=== PATIENT | female | born 1990 | race Hispanic/Latino ===

== ENCOUNTER 2020-10-14 10:03 | Outpatient (RCR) | payer OTHER, SELFPAY ==
--- NOTE | ~2020-10-14 | US_ITS ---
EXAMINATION: US OB follow up w BPP EXAM DATE: 10/14/2020 11:34 INDICATION: BPP, JORY, EFW for well being WELL BEING . 3rd trimester. TECHNIQUE: Pelvic obstetrical transabdominal sonogram was performed by a technologist. There are mu ltiple grayscale and Doppler images available for interpretation. No prior study. FINDINGS: There is a single fetus identified in vertex presentation with a heart rate of 135 beats pe r minute. The placenta is located in the fundal position. There is no sonographic evidence of retrop lacental hemorrhage identified. The amniotic fluid index is 15.0 centimeters, which is normal. BIOPHYSICAL PROFILE (performed by the technologist) breathing (30 sec sustained breathing in 30 minutes): 2 out of 2 movement (3 gross body movements in 30 minutes): 0 out of 2 tone (one episode of iaohycu-mfabytpqj-rrypovy limb movement): 2 out of 2 Amniotic fluid pocket (2 cm): 2 out of 2 Total score: 6 out of 8. BIOMETRIC DATA: Biparietal diameter (BPD): 9.6cm --------------> 39 weeks 1 day. Head circumference (HC): 85.2 cm ---------------> 41 weeks 0 days. Abdominal circumference (AC): 42.3 cm ---------> out of range. Femur length (FL): 7.6 cm ------------------------> 38 weeks 5 days. These measurements are discordant, low head circumference/abdominal circumference ratio. HC/AC ratio is 0.83 (The 5th -- 95th percentile range is 0.89-1.04. Estimated weight is 03/15/2002 g +/- 765 g. This is the greater than 97th percentile when the rrently reported clinical gestation age 39 weeks 5 days, clinical estimated date of delivery (KATHERINE-OPE ) 10/16 is used. estimated gestational age based on measurements from this exam is 39 weeks 4 da ys, with an estimated date of delivery (KATHERINE-AUA) 10/17. IMPRESSION: 1. Single fetus with heart rate of 135 bpm. 2. Abnormal BPS 04/22. 3. Normal JORY 15 cm. 4. Large abdominal circumference, likely contributing to the low HC/AC ratio. Reviewed, dictated and finalized at location A. RAL SERVICE MANAGER IMPRESSION: 1. Single fetus with heart rate of 135 bpm. 2. Abnormal BPS /8. 3. Normal JORY 15 cm. 4. Large abdominal circumference, likely contributing to the low HC/AC ratio.
[2020-10-14 13:13] VITALS: BP 116/69; PULSE 78
== END 2020-10-30 09:58 | disposition home or self-care (01) ==
LOC: ANHOBOP 10:03
PROVIDERS: Visit Provider Obstetrics & Gynecology
DX: O26.893 Other specified pregnancy related conditions, third trimester (principal); Z3A.39 39 weeks gestation of pregnancy
CPT/HCPCS: 59025; 76816; 76819

== ENCOUNTER → 2020-10-14 13:09 | Outpatient (CLI) | payer OTHER, SELFPAY ==
--- NOTE | ~2020-10-14 | US_ITS ---
EXAMINATION: US OB follow up DATE: 10/14/2020 13:40 INDICATION: Estimated weight TECHNIQUE: Real-time transabdominal obstetric ultrasound. FINDINGS: Ultrasound dated 10/14/2020 There is a single living fetus in vertex presentation. The placenta is fundal without placenta previ a. cardiac activity and movement is noted with a heart rate of 146 beats per minute. T he amniotic fluid volume is normal. JORY measures 14.4 cm. The following biometric data were obtained: BPD: 96mm corresponds to gestational age 39 weeks 1 days. Head circumference: 348mm corresponds to gestational age 40 weeks 2 days. Abdominal circumference: 416mm. Femur length: 74mm corresponds to gestational age 37 weeks 5 days. Estimated weight: 4867grams +/- 7:30grams.] IMPRESSION: 1. Single living intrauterine in vertex presentation with an estimated gestational age of 39 weeks 0 days by current ultrasound. 2. Estimated weight is 4867 g +/- 730 g which is greater than 97th percentile. Reviewed, dictated and finalized at location B. CTOR OPERATIONS IMPRESSION: 1. Single living intrauterine in vertex presentation with an estimat ed gestational age of 39 weeks 0 days by current ultrasound. 2. Estimated weight is 4867 g +/- 730 g which is greater than 97th percen letha.
== END ==
PROVIDERS: Visit Provider Obstetrics & Gynecology
DX: Z03.74 Encounter for suspected problem with fetal growth ruled out (principal); Z3A.39 39 weeks gestation of pregnancy
CPT/HCPCS: 76816

== ENCOUNTER 2020-10-15 07:02 | Inpatient (IN) | payer OTHER, SELFPAY ==
--- NOTE | 2020-10-14 20:46 | PM.IMHP ---
H&P: HPI History of Present Illness Date/Time: 10/14/20 20:46 Chief complaint: Pre-Admit Narrative: Angle Block is a 30 year old female 30 yo F presents for JONNIE at 40w1d. c/b late entry into care, +MTHFR. Her first visit was at 31 weeks and had only one other visit in [place]. Also c/b +group b strep, +trich, +pili, urine culture with +e. coli. Patient endorses movement. Continues to report pain and pressure since last visit, has not worsened. Denies contractions, bleeding, or leakage of fluids.She was offered induction of labor for vaginal delivery with risk of shoulder dystocia and exterminator helper termite complications including but not limited to Erb's palsy, brachial plexus injury with penitentiary complications, clavicular fx with neurologic or pulmonary complications, and even possible need for emergency due to Zavinelli maneuver (replacing head with penitentiary complications). Patient via her re dye hand desires to have a primary . I will schedule for in the morning at [facility] on 10/15/2020 at 0900. Paper work with risks and procedure in telugu given to patient. She understands, agrees, and accepts to proceed with the plan. Review of Systems Review of Systems: All systems reviewed & are unremarkable except as noted in HPI and below Constitutional: Constitutional: Reports no additional constitutional complaints Eyes: Eyes: Reports no additional eye complaints ENT: Reports system reviewed and no additional complaints, except as documented Cardiovascular: Cardiovascular: Reports no additional cardiovascular complaints Respiratory: Respiratory: Reports no additional respiratory complaints Gastrointestinal: Gastrointestinal: Reports no additional gastrointestinal complaints Genitourinary: Genitourinary: Reports no additional female genitourinary complaints Musculoskeletal: Musculoskeletal: Reports no additional musculoskeletal complaints Integumentary/Breasts: Skin/Breast: Reports system reviewed and no additional complaints, except as docu Neurologic: Reports system reviewed and no additional complaints, except as documented Psychiatric: Psychiatric: Reports no additional psychiatric complaints Endocrine: Endocrine: Reports no additional endocrine complaints Hematologic/Lymphatic: Hematologic/Lymphatic: Reports no additional hematologic/lymphatic complaints Allergic/Immunologic: Allergic/Immunologic: Reports no additional allergic/immunologic complaints PMFSH Past Medical History Medical History (Updated 10/14/20 @ 21:08 by Ihsan Araya MD) E. coli UTI macrosomia during in third trimester EFW>5,000g GBS (group B Streptococcus carrier), +RV culture, currently History of candidal vulvovaginitis History of delivery History of trichomonal vaginitis Homozygous MTHFR mutation [id number] Late care affecting in third trimester Vaginal delivery 11-12-2013, 29 wks 1. F, 3lbs 12oz, Vaginal Vaginal delivery 07-30-2017, 40 wks 1. M, 10lbs, Vaginal Vaginal delivery 10-27-2019, 40 wks 1. F, 10lbs 8oz, Vaginal Family History Family History Grandparent Diabetes mellitus Father Diabetes mellitus Social History Social History (Updated 10/14/20 @ 21:10 by Ihsan Araya MD) Smoking status: Never smoker Second hand tobacco smoke exposure: No Alcohol intake: never Substance use: never Substance use type: does not use Living arrangements: with family Occupation/Education: unemployed Gender identity (if verbalized by the patient): Female Sexual Orientation (if Verbalized by the Patient): Straight or Heterosexual Spiritual care concerns: No Agree to blood products: Yes Meds Home Medications and Allergies Home Medications Medication Instructions Recorded Confirmed Type aspirin [Adult Low Dose Aspirin] 81 mg PO DAILY 09/13
--- NOTE | 2020-10-14 20:54 | P.HPUP_ITS ---
History and Physical Update Update Date/Time: 10/15/20 07:00 History and Physical has been reviewed, including an updated exam of the patient. There are NO changes in the patient's condition. Risks, benefits, and alternatives have been discussed and questions answered. Patient agrees to proceed with procedure. 30 yo F presents for JONNIE at 40w1d. c/b late entry into care, +MTHFR. Her first visit was at 31 weeks and had only one other visit in [place]. Also c/b +group b strep, +trich, +pili, urine culture with +e. coli. Patient endorses movement. Continues to report pain and pressure since last visit, has not worsened. Denies contractions, bleeding, or leakage of fluids. offered induction of labor for vaginal delivery with risk of shoulder dystocia and retirement complications including but not limited to Erb's palsy, brachial plexus injury with terminal worker complications, clavicular fx with neurologic or pulmonary complications, and even possible need for emergency due to Zavinelli maneuver (replacing head with terminal worker complications). Patient via her travel accommodation inspector desires to have a primary . I will schedule for in the morning at [facility] on 10/15/2020 at 0900. Paper work with risks and procedure in thai given to patient. She understands, agrees, and accepts to proceed with the plan.
--- NOTE | 2020-10-14 20:54 | WPDOBADMIT ---
Obstetrics - Admit Note Admission Note: record reviewed. No pertinent additions to the history and/or any subsequent changes in the physical findings that are not consistent with the expected course of the were found. Additions to the history and/or subsequent changes in the physical findings follow. None. 30 yo F presents for JONNIE at 40w1d. c/b late entry into care, +MTHFR. Her first visit was at 31 weeks and had only one other visit in [place]. Also c/b +group b strep, +trich, +pili, urine culture with +e. coli. Patient endorses movement. Continues to report pain and pressure since last visit, has not worsened. Denies contractions, bleeding, or leakage of fluids. offered induction of labor for vaginal delivery with risk of shoulder dystocia and filler leaf cutter long complications including but not limited to Erb's palsy, brachial plexus injury with filler leaf cutter long complications, clavicular fx with neurologic or pulmonary complications, and even possible need for emergency due to Zavinelli maneuver (replacing head with filler leaf cutter long complications). Patient via her sales professional bilingual desires to have a primary . I will schedule for in the morning at [facility] on 10/15/2020 at 0900. Paper work with risks and procedure in comoran given to patient. She understands, agrees, and accepts to proceed with the plan.
[2020-10-15] VITALS (64 sets, daily range): BP systolic 92–144; BP diastolic 47–88; PULSE 50–79; RESP 14–18; TEMP 36.4–36.8; O2SAT 94–100; BMI 39.8
[2020-10-15 08:05] LABS: Basophils Percent Auto 0.1 % (0.2-1.2); Eosinophils Percent Auto 0.4 % (0-4.4); Hematocrit 35.1 % (37.0-47.0); Hemoglobin 11.4 g/dL (12.0-15.0); Immature Granulocyte Absolute 0.02 K/mm3 (0.00-0.031); Immature Granulocyte Percent A 0.3 % (0-0.5); Lymphocytes Absolute Auto 1.67 K/mm3 (0.9-3.2); Lymphocytes Percent Auto 21.1 % (18.3-44.2); Mean Corpuscular HGB Conc 32.5 g/dl (32-36); Mean Corpuscular Hemoglobin 28.6 pg (26-34); Mean Platelet Volume 11.2 fl (7.4-10.4); Monocytes Absolute Auto 0.5 K/mm3 (0.1-0.6); Monocytes Percent Auto 6.6 % (2.6-8.5); Neutrophils Absolute Auto 5.7 K/mm3 (1.3-6.7); Neutrophils Percent Auto 71.5 % (45.5-73.1); Platelet Count Result 177 k/mm3 (150-375); Red Blood Count 3.99 M/mm3 (4.2-5.4); Red Cell Distribution Width 13.8 % (11.5-14.5); White Blood Count 7.9 K/mm3 (4.5-10.0)
[2020-10-15] MEDS: LACTATED RINGERS 1,000 ML 125 ML IV CONT ×2 (08:07→09:08)
[2020-10-15 08:16] LABS: Ethanol < 10 mg/dL (<10)
--- NOTE | 2020-10-15 08:30 | LDADM ---
This patient, Angle Block, was admitted to Labor/Delivery/Recovery 119 on 10/15/20 at 07:02. Plans for scheduled section, pain management and were discussed with patient. Patient/family oriented to hospital policies and general routines including ID bracelet, bed and alarms, visiting hours, pain management, procedures, bathroom and other care routines, personal items, smoking policy, room service/diet and guest tray routines, infant security routines, and visiting hours. Patient/Family are encouraged to report perceived risks to care and to ask questions if they do not understand what they are told or what they should do. See OBIX for further documentation.
[2020-10-15 08:40] LABS: Amphetamine Screen Urine Negative (Negative); Barbiturate Screen Urine Negative (Negative); Benzodiazepines Screen Urine Negative (Negative); Cannabinoid Screen Urine Negative (Negative); Cocaine Screen Urine Negative (Negative); Methadone Screen Urine Negative (Negative); Opiate Screen Urine Negative (Negative); Phencyclidine Screen Urine Negative (Negative)
--- NOTE | 2020-10-15 09:11 | WPDANESEPPF ---
Anes - Initial Pre Proc Eval Procedure: Operation Date: 10/15/20 09:00 Proposed Procedures p Primary Section - Ihsan Araya MD Date/Time: 10/15/20 09:11 Surgeon: Ihsan Araya MD Pre Op Diagnosis: C/S Patient Data Age: 30 Gender: F Height: 4 ft 11 in Weight: 89.5 kg Last Vital Signs Temp 36.4 C L 10/15/20 08:08 Pulse 79 10/15/20 07:30 BP 120/73 10/15/20 07:30 Allergies Allergy/AdvReac Type Severity Reaction Status Date / Time No Known Allergies Allergy Verified 09/13/20 14:56 Home Medications Medication Instructions Recorded Confirmed Type aspirin [Adult Low Dose Aspirin] 81 mg PO DAILY 09/13/20 09/13/20 History folic acid 1 mg PO QID 09/13/20 09/13/20 History penicillin V potassium 500 mg PO Q12H 09/13/20 09/13/20 History prenat.vits,morris,fou-ztdw-lhbph 1 tablet PO DAILY 09/13/20 09/13/20 History [ #2] Laboratory Tests 10/15/20 10/15/20 10/15/20 07:42 07:42 07:42 WBC 7.9 K/mm3 K/mm3 (4.5-10.0) RBC 3.99 M/mm3 L M/mm3 (4.2-5.4) Hgb 11.4 g/dL L g/dL (12.0-15.0) Hct 35.1 % L % (37.0-47.0) MCV 88.0 fl fl (80-100) MCH 28.6 pg pg (26-34) MCHC 32.5 g/dl g/dl (32-36) RDW 13.8 % % (11.5-14.5) Plt Count 177 k/mm3 k/mm3 (150-375) MPV 11.2 fl H fl (7.4-10.4) Immature Gran % (Auto) 0.3 % % (0-0.5) Neut % (Auto) 71.5 % % (45.5-73.1) Lymph % (Auto) 21.1 % % (18.3-44.2) [place] % (Auto) 6.6 % % (2.6-8.5) Eos % (Auto) 0.4 % % (0-4.4) Baso % (Auto) 0.1 % L % (0.2-1.2) Lymph # (Auto) 1.67 K/mm3 K/mm3 (0.9-3.2) [place] # (Auto) 0.5 K/mm3 K/mm3 (0.1-0.6) Eos # (Auto) 0.0 K/mm3 K/mm3 (0-0.3) Baso # (Auto) 0.0 K/mm3 K/mm3 (0.0-0.1) Abs Immat Gran (auto) 0.02 K/mm3 K/mm3 (0.00-0.031) Absolute Neuts (auto) 5.7 K/mm3 K/mm3 (1.3-6.7) Absolute Nucleated RBC 0.0 K/mm3 K/mm3 (0.0-0.012) Nucleated RBC % 0.0 % % (0.0-0.2) Urine Opiates Screen Urine Methadone Screen Ur Barbiturates Screen Ur Phencyclidine Scrn Ur Amphetamine Screen U Benzodiazepines Scrn Urine Cocaine Screen U Cannabinoids Screen Ethyl Alcohol < 10 mg/dL mg/dL (<10) RPR Pending 10/15/20 08:18 WBC RBC Hgb Hct MCV MCH MCHC RDW Plt Count MPV Immature Gran % (Auto) Neut % (Auto) Lymph % (Auto) [place] % (Auto) Eos % (Auto) Baso % (Auto) Lymph # (Auto) [place] # (Auto) Eos # (Auto) Baso # (Auto) Abs Immat Gran (auto) Absolute Neuts (auto) Absolute Nucleated RBC Nucleated RBC % Urine Opiates Screen Negative (Negative) Urine Methadone Screen Negative (Negative) Ur Barbiturates Screen Negative (Negative) Ur Phencyclidine Scrn Negative (Negative) Ur Amphetamine Screen Negative (Negative) U Benzodiazepines Scrn Negative (Negative) Urine Cocaine Screen Negative (Negative) U Cannabinoids Screen Negative (Negative) Ethyl Alcohol RPR Patient hx anesthesia problems: none Family hx anesthesia problems: none PMFSH Past Medical History Medical History E. coli UTI macrosomia during in third trimester EFW>5,000g GBS (group B Streptococcus carrier), +RV culture, currently History of candidal vulvovaginitis History of delivery History of trichomonal vaginitis Homozygous MTHFR mutation C677T Late care affecting in third trimester Vaginal delivery 11-12-2013, 29 wks 1. F, 3lbs 12oz, Vaginal Vaginal deliv
[2020-10-15 10:15] LABS: Rapid Plasma Reagin Non-Reactive (NonReactive)
--- NOTE | 2020-10-15 10:31 | P.PCNOB_ITS ---
OB - Delivery Note Procedure Procedure: Procedures Operation Date: 10/15/20 09:00 Primary low-transverse section with delivery of viable male infant and placenta Intrapartal events: None Induction method: none Delivery monitor: external FHT and external uterine Route of delivery: (Primary low-transverse section) Episiotomy description: None Laceration Description: None Quantitative Blood Loss: 463 Anesthesia type: Spinal (Duramorph) Disposition: floor Complications: None Narrative: See dictated operative note [place] Baby Date of : 10/15/20 Time of : 10:02 Weeks of gestation at delivery: 40 gender: Male (Salvatore) Weight (pounds): 10 Weight (ounces): 12 presentation: vertex position: Left Occiput Anterior Placenta delivery description: Manual Removal and Normal Configuration cord vessel description: 3 Vessels score one minute: 9 score five minutes: 9
--- NOTE | 2020-10-15 10:37 | PM.PROC ---
Procedure Note - Detailed Date of procedure: 10/15/20 Pre-op diagnosis: C/S Term macrosomia greater than 5000 g estimated weight Late care GBS Homozygous MTHFR mutation E coli urinary tract infection History of trichomoniasis Vaginal candidiasis Post-op diagnosis: same (Delivered viable male macrosomic infant and placenta) Procedure performed: Primary low-transverse section with delivery of viable male and placenta Description of procedure: Informed consent was obtained with use of corn crop supervisor via her and the translation line and the patient was taken to the operating room where spinal anesthetic was administered. Patient's experience a syncopal episode and was taken for evaluation via wheelchair and was stable in the holding room. A Chapa catheter was inserted and the abdomen was then prepped and then draped in the usual sterile fashion and a time-out was performed. After testing for adequate anesthesia with Allis clamp, a Pfannenstiel incision was made to the skin in the abdomen was opened in layers using electrocautery for hemostasis. The fascia was entered with electrocautery and extended bilaterally undermined superior and inferior after which the rectus muscles were in the midline and the peritoneum was entered with electrocautery and extended bilaterally digitally. The vesicouterine peritoneal reflection was incised transversely and then a transverse incision was made to the uterus and digital entry to the amniotic sac revealed clear amniotic fluid the uterine incision was extended bilaterally digitally the macrosomic was then delivered via the abdominal incision without difficulty there was spontaneous respirations and cry the cord was clamped and cut and the was handed to the nursery nurse in attendance scores 9 and 9 weight 10 lb 12 oz 21-1/2 inches long taken to the nursery in stable condition. Within normal transition. Cord gases cord blood and the placenta was then delivered intact with a three-vessel cord the uterus contracted well with Pitocin given intravenously as well as 10 units into the myometrium. Uterus was externalized blood clots membranes removed from the intrauterine cavity the uterine incision was then repaired in 2 layers with 0 Vicryl in a running interlocking fashion 2nd being an imbricating stitch. Blood clots removed from the cul-de-sac both lateral gutters with irrigation sponge needle instrument count correct. The peritoneum and rectus muscles were reapproximated in the interim running fashion with 0 Vicryl suture. The fascia was then closed with 2. Quill S RS system bilaterally the subcutaneous Pradip's fascia was reapproximated 3 0 plain and the skin was closed with the insorb absorbable stapling device and then Dermabond was applied to the skin [place] Mepilex dressing was placed across the incision the sponge needle instrument counts correct the patient was taken to the recovery room in stable condition and tolerated the procedure well and the was in stable condition as was the baby. Implants: None Anesthesia: spinal (Duramorph) Surgeon: Ihsan Araya MD Data Analysis Intern: technologist infectious disease x2 Estimated blood loss (mL): 463 IV fluids (mL): 2,000 Urine output (mL): 200 Drains: Yes (Chapa catheter) Packing: No Pathology: yes (The cord gases cord blood and placenta) Complications: None Condition: stable Disposition: floor Findings: Viable male infant delivered at 10:02 a.m. on 10/15/2020 scores 9 and 9 weight 10 lb 12 oz length 21-1/2 inches The placenta delivered 1004 a.m. intact with a three-vessel cord Uterus tubes ovaries normal Counts correct Complications none VTE prevention SCDs Antibiotic prophylaxis Ancef 3 g Mom to recovery room in stable condition Baby normal transition with spontaneous respirations and cry and no observed abnormalities on the examination taken to the nursery in stable condition
[2020-10-15] MEDS: KETOROLAC 30 MG/ML VIAL (*BKC) IV PUSH (11:39)
[2020-10-15] MEDS: OXYTOCIN 30 UNITS/NS 500 ML 30 UNITS/500 ML BAG 125 UNITS IV CONT (12:12)
--- NOTE | 2020-10-15 17:16 | PC.NURSE ---
Patient transferred to post room #277 via stretcher. Support person present. Oriented to unit, room, information board, rooming in, admission packet and security measures. Patient verbalizes understanding.
[2020-10-15] MEDS: DEXTROSE 5%/0.45% SOD CHL 1,000 ML 125 ML IV CONT (18:39)
[2020-10-15] MEDS: ceFAZolin 2 GM/D5W 50 ML 2 GM/50 ML BAG IVPB (18:44)
[2020-10-16 00:05] VITALS: BP 98/56; PULSE 68; RESP 16; TEMP 37.1
[2020-10-16] MEDS: ceFAZolin 2 GM/D5W 50 ML 2 GM/50 ML BAG IVPB ×2 (03:07→11:11)
[2020-10-16] MEDS: KCL 20 MEQ/D5/0.45% SOD CHL 1,000 ML 125 ML IV CONT (03:11)
[2020-10-16 05:00] VITALS: BP 123/80; PULSE 67; RESP 14; TEMP 37.2
[2020-10-16] MEDS: HYDROcodone/acetaminophen (*CRX) 5-325 MG TABLET 1 TAB PO ×4 (05:28→17:18)
[2020-10-16] MEDS: IBUPROFEN 600 MG TABLET PO ×4 (05:28→23:17)
--- NOTE | 2020-10-16 05:55 | PC.NURSE ---
Addendum entered by Elidia Escobar RN 10/16/20 06:09: Attempts to chair: 1900, 2200, 0500 - day shift RN told in report. Original Note: RN attempted to get pt up to chair on 3 separate occasions during this shift. Pt refused all 3 times. RN educated pt on the benefits of early ambulation in relation to healing.
[2020-10-16 07:40] VITALS: BP 113/73; PULSE 63; RESP 18; TEMP 36.4; O2SAT 100
[2020-10-16] MEDS: DOCUSATE SODIUM 100 MG CAPSULE PO ×2 (08:35→17:17)
[2020-10-16] MEDS: MULTIVIT/MIN/PREN/FOL AC/IRON TABLET 1 TAB PO (08:35)
[2020-10-16 09:02] LABS: Basophils Percent Auto 0.2 % (0.2-1.2); Eosinophils Absolute Auto 0.1 K/mm3 (0-0.3); Hematocrit 30.2 % (37.0-47.0); Hemoglobin 9.6 g/dL (12.0-15.0); Immature Granulocyte Absolute 0.04 K/mm3 (0.00-0.031); Immature Granulocyte Percent A 0.4 % (0-0.5); Lymphocytes Absolute Auto 1.65 K/mm3 (0.9-3.2); Lymphocytes Percent Auto 17.9 % (18.3-44.2); Mean Corpuscular HGB Conc 31.8 g/dl (32-36); Mean Corpuscular Hemoglobin 28.7 pg (26-34); Mean Corpuscular Volume 90.1 fl (80-100); Mean Platelet Volume 11.5 fl (7.4-10.4); Monocytes Absolute Auto 0.6 K/mm3 (0.1-0.6); Neutrophils Absolute Auto 6.9 K/mm3 (1.3-6.7); Neutrophils Percent Auto 74.5 % (45.5-73.1); Platelet Count Result 154 k/mm3 (150-375); Red Blood Count 3.35 M/mm3 (4.2-5.4); Red Cell Distribution Width 13.9 % (11.5-14.5); White Blood Count 9.2 K/mm3 (4.5-10.0)
--- NOTE | 2020-10-16 09:34 | PM.OBPNVD ---
OB - PN: Subj Subjective Date/time seen: 10/16/20 09:34 Patient comments: no complaints, pain well controlled, tolerating diet and flatus present baby status: doing well, nursing well and bottle feeding well feeding status: breast and bottle feeding OB - PN: Obj Data Labs CBC & Chem 7: 10/16/20 08:37 Labs: Laboratory Results - last 24 hr 10/15/20 10/15/20 10/16/20 07:42 07:42 08:37 WBC 9.2 RBC 3.35 L Hgb 9.6 L Hct 30.2 L MCV 90.1 MCH 28.7 MCHC 31.8 L RDW 13.9 Plt Count 154 MPV 11.5 H Immature Gran % (Auto) 0.4 Neut % (Auto) 74.5 H Lymph % (Auto) 17.9 L [place] % (Auto) 6.0 Eos % (Auto) 1.0 Baso % (Auto) 0.2 Lymph # (Auto) 1.65 [place] # (Auto) 0.6 Eos # (Auto) 0.1 Baso # (Auto) 0.0 Abs Immat Gran (auto) 0.04 H Absolute Neuts (auto) 6.9 H Absolute Nucleated RBC 0.0 Nucleated RBC % 0.0 RPR Non-reactive Blood Type O Positive Antibody Screen Negative OB - PN A/P Assessment and Plan (1) Term delivered: Code(s): O80 - Encounter for full-term uncomplicated delivery Status: Acute (2) Delivery by elective section: Code(s): O82 - Encounter for delivery without indication Status: Acute (3) macrosomia during in third trimester: Code(s): O36.63X0 - Maternal care for excessive growth, third trimester, not applicable or unspecified Status: Acute Plan day: 1 Plan: routine care, discharge home (In the morning) and follow up 6 weeks (3 week) Time Spent With Patient Time: Total time spent is greater than 50% in coordination of care (as documented) at patient's floor/unit and/or counseling patient: Time with patient: less than 15 minutes Review of Systems Review of Systems: All systems reviewed & are unremarkable except as noted in HPI and below Exam Const: General: cooperative, healthy appearing, comfortable, no acute distress, well developed, alert, awake and Physically active Nutritional Appearance: average body habitus and well nourished Orientation/consciousness: patient oriented x3 Limitations: no limitations HENMT: Head: normal to inspection Eyes: General: appearance normal, both eyes and all related structures Neck: Neck: normal visual inspection and full ROM Chest: Chest palpation & inspection: normal inspection of the chest Breast/axilla inspection: normal inspection of the breasts Resp: Effort & Inspection: normal respiratory effort Auscultation: clear to auscultation bilaterally Cardio: Palpation: normal PMI Rate: regular rate Rhythm: regular rhythm Heart sounds: S1 normal heart sound present and S2 normal heart sound present GI: Inspection: normal to inspection and incision (Dressing dry and intact) GI Palp: Yes Soft to palpation Percussion: Yes normal to percussion Auscultation: normal bowel sounds : External Female Exam: normal external appearance Bimanual exam- vagina & uterus: non-tender Urinary Catheter: Urinary Catheter: patent and draining and urine clear Back/Spine/Pelvis: Back: no CVA tenderness Skin: General skin exam: normal color and no rashes or lesions noted Neuro: General: patient oriented x3, gait normal, tone normal, moves all extremities, Normal light touch and pain sensation, no focal motor deficits and CN's II-XI intact bilaterally Extrem: General: normal to inspection, full ROM, no pedal edema and no calf tenderness Psych: Appearance: grossly normal Mental Status: mental status grossly normal Speech and movement: Normal speech and movement present Affect: normal affect Attitude: cooperative Thought process: Normal thought process present Thought content: Yes Normal thought content present Insight: Good insight present (Psych) Judgement: Good judgement present (Psych)
--- NOTE | 2020-10-16 09:43 | PM.OBDSVD ---
DS: Admitting Diagnosis Admitting Diagnosis Admitting Diagnosis: C/S Term macrosomia greater than 5000 g estimated weight Late care GBS Homozygous MTHFR mutation E coli urinary tract infection History of trichomoniasis Vaginal candidiasis DS: Discharge Diagnosis Discharge Diagnosis (1) Term delivered: Code(s): O80 - Encounter for full-term uncomplicated delivery Status: Acute (2) macrosomia during in third trimester: Code(s): O36.63X0 - Maternal care for excessive growth, third trimester, not applicable or unspecified Status: Acute (3) Late care affecting in third trimester: Code(s): O09.33 - Supervision of with insufficient care, third trimester Status: Acute (4) GBS (group B Streptococcus carrier), +RV culture, currently : Code(s): O99.820 - Streptococcus B carrier state complicating Status: Acute (5) E. coli UTI: Code(s): N39.0 - Urinary tract infection, site not specified; B96.20 - Unspecified Escherichia coli [E. 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 - Methylenetetrahydrofolate reductase deficiency Status: Acute (9) Delivery by elective section: Code(s): O82 - Encounter for delivery without indication Status: Acute OB - DS: Summary Hospital Course Time spent discussing smoking cessation with patient: 3 to 10 minutes OB Procedures : NST and Ultrasound OB Procedures Intrapartum: (Primary for macrosomia estimated weight greater than 5000 g) low cervical, transverse and GBS prophylaxis OB Procedures: : Antibiotics Peripartum Data Delivery Method: Section (Primary low-transverse) Laceration Description: None Episiotomy description: None Procedures: Procedures Operation Date: 10/15/20 09:00 Primary low-transverse section with delivery of viable male infant and placenta complications: none [place] 1: Gender: Male (Salvatore) Disposition of : home Status at Discharge Functional status at discharge: independent ambulation Overall status at discharge: patient is back to baseline Time Spent with Patient Time attestation: Total time spent providing and/or coordinating discharge services: Time spent: Less than 30 minutes Exam Const: General: cooperative, healthy appearing, comfortable, no acute distress, well developed, alert, awake and Physically active Nutritional Appearance: average body habitus and well nourished Orientation/consciousness: patient oriented x3 Limitations: no limitations HENMT: Head: normal to inspection Eyes: General: appearance normal, both eyes and all related structures Neck: Neck: normal visual inspection and full ROM Chest: Chest palpation & inspection: normal inspection of the chest Breast/axilla inspection: normal inspection of the breasts Breast/axilla palpation: normal palpation of the breasts Resp: Effort & Inspection: normal respiratory effort Auscultation: clear to auscultation bilaterally Cardio: Palpation: normal PMI Rate: regular rate Rhythm: regular rhythm Heart sounds: S1 normal heart sound present and S2 normal heart sound present GI: Inspection: normal to inspection GI Palp: Yes Soft to palpation Percussion: Yes normal to percussion Auscultation: normal bowel sounds : External Female Exam: normal external appearance Bimanual exam- vagina & uterus: non-tender Back/Spine/Pelvis: Back: n
--- NOTE | 2020-10-16 11:22 | WPDANLDPN2 ---
Anes-Prog Note L&D Date/Time: 10/16/20 11:22 Comfortable throughout: section Neuraxial method: spinal Epidural/Spinal procedure site: clean & non-tender Neuro status: Neuro function grossly intact. Cardiovascular status: normal Respiratory status: normal Airway patency: baseline Mental status: baseline Post-Op hydration status: normal Vital Signs: Last Vital Signs Temp 36.4 C L 10/16/20 07:40 Pulse 63 10/16/20 07:40 Resp 18 10/16/20 07:40 BP 113/73 10/16/20 07:40 Pulse Ox 100 10/16/20 07:40 Pain score (VAS): 3 I/O: Intake & Output 10/15/20 10/16/20 10/16/20 23:59 07:59 15:59 Intake Total 560 950 Output Total 2750 Balance 560 -1800 Post-procedural complaints: none Patient feedback: Patient satisfied with anesthetic care.
--- NOTE | 2020-10-16 11:22 | WPDANLDNPN2 ---
Anes-Prog Note L&D-Neuraxial Date/Time: 10/16/20 11:22 Neuraxial medications: intrathecal PF morphine Opiod-related complaints: none Patient feedback: Patient satisfied with post-operative pain management.
--- NOTE | 2020-10-16 14:21 | PC.NURSE ---
Patient viewed the discharge video Mother & Baby Care, The First Two Weeks . Patient was given the opportunity and encouraged to ask questions. Patient verbalized understanding of information shared and has been given the mother/baby guide for home reference.
[2020-10-16] MEDS: POLYSACCHARIDE IRON COMPLEX 150 MG CAPSULE PO (17:17)
[2020-10-16 20:00] VITALS: BP 111/69; PULSE 66; RESP 16; TEMP 37.1; O2SAT 98
[2020-10-17] MEDS: HYDROcodone/acetaminophen (*CRX) 5-325 MG TABLET 1 TAB PO ×2 (02:33→08:50)
[2020-10-17] MEDS: IBUPROFEN 600 MG TABLET PO (05:08)
[2020-10-17 07:45] VITALS: BP 124/74; PULSE 71; RESP 18; TEMP 36.3; O2SAT 98
[2020-10-17] MEDS: DOCUSATE SODIUM 100 MG CAPSULE PO (08:49)
[2020-10-17] MEDS: MULTIVIT/MIN/PREN/FOL AC/IRON TABLET 1 TAB PO (08:49)
[2020-10-17] MEDS: POLYSACCHARIDE IRON COMPLEX 150 MG CAPSULE PO (08:49)
[2020-10-19 10:45] VITALS: BP 126/78; PULSE 76; RESP 20; TEMP 37.1; O2SAT 99
== END 2020-10-17 13:45 | disposition home or self-care (01) | DRG 787 ==
LOC: ANHLDR 13:32 → ANHOB2 13:36
PROVIDERS: Admitting Provider Obstetrics & Gynecology; Visit Provider Obstetrics & Gynecology
PROC: 10D00Z1 Extraction of Products of Conception, Low, Open Approach (ICD-10-PCS; CPT 59514; principal; 2020-10-15 09:00)
DX: O36.63X0 Maternal care for excessive fetal growth, third trimester, not applicable or unspecified (principal); E72.12 Methylenetetrahydrofolate reductase deficiency; Z37.0 Single live birth; Z3A.40 40 weeks gestation of pregnancy; O99.284 Endocrine, nutritional and metabolic diseases complicating childbirth; O99.824 Streptococcus B carrier state complicating childbirth; O99.214 Obesity complicating childbirth; E66.9 Obesity, unspecified
CPT/HCPCS: 36415; 80307; 85025; 86592; 86850; 86900; 86901; 88307; A9270; J0131; J0690; J1885; J2250; J2405; J2590; J2704; J3010; J3480; J7120